=== PATIENT | female | born 1985 | race Caucasian/White ===

== ENCOUNTER 2018-01-27 14:32 | Emergency (ER) | payer OTHER ==
[~2018-01-27] VITALS: Ht 165.1 cm; Wt 63.5 kg
[2018-01-27 14:59] VITALS: Ht 165.1 cm; Wt 63.5 kg
[2018-01-27 15:46] LABS: PLATELET COUNT 188 x10^3mcL (130-400); RED CELL DISTRIBUTION WIDTH 13.1 % (11.5-14.5)
[2018-01-27 15:54] LABS: CALCIUM 8.1 mg/dL (8.5-10.1); CARBON DIOXIDE 26.4 mmol/L (21-32); CHLORIDE SERUM 104 mmol/L (98-107); CREATININE SERUM 0.8 mg/dL (0.6-1.0); GFR1 > 60 mL/min; GLUCOSE SERUM 107 mg/dL (74-106); POTASSIUM SERUM 3.8 mmol/L (3.5-5.1); SODIUM SERUM 137 mmol/L (136-145)
[2018-01-27 15:58] LABS: ALBUMIN 3.4 g/dL (3.4-5.0); ALKALINE PHOSPHATASE 73 U/L (46-116); ALT/SGPT 21 U/L (14-59); AST/SGOT 24 U/L (15-37); BILIRUBIN TOTAL 0.56 mg/dL (0.20-1.00); LIPASE 47 IU/L (73-393); TOTAL PROTEIN, SERUM 6.8 g/dL (6.4-8.2)
[2018-01-27 16:00] LABS: AMYLASE 13 U/L (25-115)
[2018-01-27 16:13] LABS: BAND NEUTROPHIL 3 % (0-10); BASOPHIL 0 % (0-2); MONOCYTE 6 % (0-7); SEGMENTED NEUTROPHILS 87 % (37-75)
[2018-01-27 16:14] LABS: rbc morphology (normal/abnorm) NORMAL (NORMAL)
[2018-01-27 17:36] LABS: microscopic required? YES; urine erythrocyte TRACE (NEGATIVE)
[2018-01-27 17:46] VITALS: BP 134/92
== END 2018-01-27 17:46 | disposition home or self-care (01) ==
LOC: ED 14:32
PROVIDERS: Emergency Medicine
DX: R10.32 Left lower quadrant pain (principal); R19.7 Diarrhea, unspecified; R11.10 Vomiting, unspecified
CPT/HCPCS: 87491; 87591; J1885; J3010

== ENCOUNTER 2018-02-12 12:19 | Inpatient (IN) | payer OTHER ==
[~2018-02-12] VITALS: Ht 165.1 cm; Wt 79.9 kg
[2018-02-12 12:23] VITALS: Ht 165.1 cm; Wt 79.9 kg
[2018-02-12 12:55] LABS: RED CELL DISTRIBUTION WIDTH 13.9 % (11.5-14.5)
[2018-02-12 12:58] LABS: UA SPECIFIC GRAVITY <=1.005 (1.005-1.035); microscopic required? YES; urine erythrocyte TRACE (NEGATIVE)
[2018-02-12 13:03] LABS: PLATELET COUNT 688 x10^3mcL (130-400)
[2018-02-12 13:06] LABS: CALCIUM 8.6 mg/dL (8.5-10.1); CARBON DIOXIDE 28.7 mmol/L (21-32); CHLORIDE SERUM 99 mmol/L (98-107); GFR1 > 60 mL/min; GLUCOSE SERUM 105 mg/dL (74-106); POTASSIUM SERUM 4.1 mmol/L (3.5-5.1); SODIUM SERUM 133 mmol/L (136-145)
[2018-02-12 13:12] LABS: ALKALINE PHOSPHATASE 105 U/L (46-116); ALT/SGPT 24 U/L (14-59); AMYLASE 34 U/L (25-115); AST/SGOT 10 U/L (15-37); BILIRUBIN TOTAL 0.45 mg/dL (0.20-1.00); LIPASE 100 IU/L (73-393); TOTAL PROTEIN, SERUM 8.1 g/dL (6.4-8.2)
[2018-02-12 13:17] LABS: ALBUMIN 2.9 g/dL (3.4-5.0)
[2018-02-12 13:51] LABS: BAND NEUTROPHIL 6 % (0-10); BASOPHIL 0 % (0-2); MONOCYTE 4 % (0-7); SEGMENTED NEUTROPHILS 74 % (37-75); rbc morphology (normal/abnorm) NORMAL (NORMAL)
[2018-02-12 13:52] LABS: PLATELET MORPHOLOGY PLATELETS INCREASED
[2018-02-12] MEDS ORDERED: NITROFURANTOIN100 MG PO (16:09)
[2018-02-12] MEDS ORDERED: TRAMADOL HCL50 MG PO (16:09)
[2018-02-12] MEDS ORDERED: ONDANSETRON4 M3 PO (16:10)
[2018-02-12] MEDS ORDERED: OMEPRAZOLE40 M1 PO (16:13)
[2018-02-12 17:15] LABS: AMPHETAMINE QUAL UR NONE DETECTED (See below)
[2018-02-12 17:31] LABS: T3 TOTAL 1.17 ng/mL
[2018-02-12 18:05] LABS: CHOLESTEROL/HDL RATIO 3.4; MAGNESIUM 2.2 mg/dL (1.8-2.4)
[2018-02-12 18:12] LABS: FREE T4 2.68 ng/dL (0.76-1.46); FREE THYROXINE INDEX 2.8 ug/dL (1.4-4.5); T4(THYROXINE) 9.6 ug/dL (4.7-13.3)
[2018-02-12 18:15] VITALS: BP 126/76
[2018-02-12 21:17] VITALS: BP 111/61
[2018-02-13 05:42] VITALS: BP 141/85
[2018-02-13 09:30] VITALS: BP 119/76
[2018-02-13 10:08] LABS: BASOPHIL % 0.3 % (0-2); RED CELL DISTRIBUTION WIDTH 13.8 % (11.5-14.5)
[2018-02-13 10:09] LABS: PLATELET COUNT 623 x10^3mcL (130-400)
[2018-02-13 10:19] LABS: CARBON DIOXIDE 28.9 mmol/L (21-32); CHLORIDE SERUM 102 mmol/L (98-107); GFR1 > 60 mL/min; GLUCOSE SERUM 113 mg/dL (74-106); MAGNESIUM 1.8 mg/dL (1.8-2.4); PHOSPHOROUS 3.6 mg/dL (2.5-4.9); POTASSIUM SERUM 4.6 mmol/L (3.5-5.1); SODIUM SERUM 137 mmol/L (136-145)
[2018-02-13 17:30] VITALS: BP 123/76
[2018-02-13 20:41] VITALS: BP 124/80
[2018-02-14 06:03] VITALS: BP 119/79
[2018-02-14 07:59] LABS: CALCIUM 8.6 mg/dL (8.5-10.1); CARBON DIOXIDE 27.2 mmol/L (21-32); CHLORIDE SERUM 104 mmol/L (98-107); CREATININE SERUM 0.9 mg/dL (0.6-1.0); GFR1 > 60 mL/min; GLUCOSE SERUM 95 mg/dL (74-106); MAGNESIUM 1.9 mg/dL (1.8-2.4); PHOSPHOROUS 3.3 mg/dL (2.5-4.9); POTASSIUM SERUM 3.9 mmol/L (3.5-5.1); SODIUM SERUM 140 mmol/L (136-145)
[2018-02-14 09:25] VITALS: BP 118/77
[2018-02-14 11:22] LABS: BASOPHIL % 0.4 % (0-2); RED CELL DISTRIBUTION WIDTH 13.6 % (11.5-14.5)
[2018-02-14 11:23] LABS: PLATELET COUNT 583 x10^3mcL (130-400)
[2018-02-14 17:19] VITALS: BP 118/76
[2018-02-14 21:17] VITALS: BP 133/79
[2018-02-15 05:29] VITALS: BP 122/73
[2018-02-15 07:14] LABS: CARBON DIOXIDE 26.8 mmol/L (21-32); CHLORIDE SERUM 101 mmol/L (98-107); GFR1 > 60 mL/min; GLUCOSE SERUM 107 mg/dL (74-106); POTASSIUM SERUM 3.6 mmol/L (3.5-5.1); SODIUM SERUM 139 mmol/L (136-145)
[2018-02-15 07:16] LABS: BASOPHIL % 1.4 % (0-2); RED CELL DISTRIBUTION WIDTH 13.7 % (11.5-14.5)
[2018-02-15 07:26] LABS: PLATELET COUNT 710 x10^3mcL (130-400)
[2018-02-15 09:34] VITALS: BP 124/81
[2018-02-15 16:31] VITALS: BP 118/79
[2018-02-15 21:08] VITALS: BP 131/88
[2018-02-16 05:32] VITALS: BP 108/61
[2018-02-16 07:28] LABS: CALCIUM 9.8 mg/dL (8.5-10.1); CHLORIDE SERUM 101 mmol/L (98-107); GFR1 > 60 mL/min; GLUCOSE SERUM 90 mg/dL (74-106); POTASSIUM SERUM 4.1 mmol/L (3.5-5.1); SODIUM SERUM 138 mmol/L (136-145)
[2018-02-16 07:47] LABS: BASOPHIL % 0.5 % (0-2); PLATELET COUNT 637 x10^3mcL (130-400); RED CELL DISTRIBUTION WIDTH 13.1 % (11.5-14.5)
[2018-02-16] MEDS ORDERED: LEVOFLOXACIN750 M1 PO (08:31)
[2018-02-16] MEDS ORDERED: METHIMAZOLE10 MG PO (08:32)
[2018-02-16 08:40] VITALS: BP 116/64
== END 2018-02-16 09:15 | disposition home or self-care (01) | DRG 720 ==
LOC: ED 12:19 → MU 16:34
PROVIDERS: Emergency Medicine; Family Medicine
DX: A41.9 Sepsis, unspecified organism (principal); N17.0 Acute kidney failure with tubular necrosis; E44.0 Moderate protein-calorie malnutrition; E87.1 Hypo-osmolality and hyponatremia; F12.10 Cannabis abuse, uncomplicated; R80.9 Proteinuria, unspecified; Z68.23 Body mass index [BMI] 23.0-23.9, adult; Z88.5 Allergy status to narcotic agent; D64.9 Anemia, unspecified; D47.3 Essential (hemorrhagic) thrombocythemia; E86.1 Hypovolemia; K59.00 Constipation, unspecified; N12 Tubulo-interstitial nephritis, not specified as acute or chronic
CPT/HCPCS: 84439; 87046; 87046-59; J1956; J2270; J2405; J3010; J7030; Q0092; Q0163; Q9967

== ENCOUNTER 2019-03-13 17:03 | Emergency (ER) | payer OTHER ==
[~2019-03-13] VITALS: Ht 167.6 cm; Wt 72.6 kg
[~2019-03-13 17:03] MED LIST: LEVOFLOXACIN750 M1 PO; METHIMAZOLE10 MG PO; NITROFURANTOIN100 MG PO; OMEPRAZOLE40 M1 PO; ONDANSETRON4 M3 PO; TRAMADOL HCL50 MG PO
[2019-03-13 17:06] VITALS: Ht 167.6 cm; Wt 72.6 kg
[2019-03-13 19:02] VITALS: BP 139/81
== END 2019-03-13 19:02 | disposition home or self-care (01) ==
LOC: ED 17:03
DX: S16.1XXA Strain of muscle, fascia and tendon at neck level, initial encounter (principal); S39.012A Strain of muscle, fascia and tendon of lower back, initial encounter; S60.212A Contusion of left wrist, initial encounter; Z88.5 Allergy status to narcotic agent; V49.9XXA Car occupant (driver) (passenger) injured in unspecified traffic accident, initial encounter; Y93.89 Activity, other specified; Y92.89 Other specified places as the place of occurrence of the external cause; Y99.8 Other external cause status
CPT/HCPCS: J1885; Q0092

== ENCOUNTER 2020-03-14 20:57 | Emergency (ER) | payer OTHER ==
[~2020-03-14] VITALS: Ht 165.1 cm; Wt 74.6 kg
[2020-03-14 21:11] VITALS: Ht 165.1 cm; Wt 74.6 kg
[2020-03-14 23:56] VITALS: BP 122/87
== END 2020-03-14 23:56 | disposition home or self-care (01) ==
LOC: ED 20:57
DX: M25.512 Pain in left shoulder (principal); R07.89 Other chest pain; Z88.5 Allergy status to narcotic agent
CPT/HCPCS: J1885